=== PATIENT | female | born 1985 | race Caucasian/White ===

== ENCOUNTER 2017-09-20 11:05 | Emergency (ER) | payer OTHER ==
[~2017-09-20] VITALS: Ht 170.2 cm; Wt 106.0 kg
[~2017-09-20 11:05] MED LIST: CYCLOBENZAPR10 MG PO; FERROUS SULF325 M1 PO; FLAGYL500 MG OR; GAVISCO3 PO; IBUPROFEN600 MG PO; METROGEL VAG0.75 % VA; MOTRIN400 MG/TAB PO; OMEPRAZOLE20 MG OR; PRE-NATAL PO; RANITIDINE OR; RANITIDINE150 M1 PO; [UNRECOGNIZED DRUG - OTHER] OR
[2017-09-20 12:50] LABS: URINE BILIRUBIN - DIPSTICK NEGATIVE (NEGATIVE); URINE BLOOD DIPSTICK LARGE (NEGATIVE); URINE COLOR YELLOW; URINE GLUCOSE - DIPSTICK NEGATIVE (NEGATIVE); URINE KETONE TRACE mg/dL (NEGATIVE); URINE NITRITE - DIPSTICK NEGATIVE (Negative); URINE PH 7.5 (4.5-8.0); URINE PROTEIN - DIPSTICK NEGATIVE (NEG-TRACE); URINE UROBILINOGEN - DIPSTICK 0.2 E.U./dL (0.2)
[2017-09-20 12:52] LABS: URINE CLARITY SL CLOUDY; URINE LEUK ESTERASE SMALL (NEGATIVE); URINE RBC 25-50 RBC/hpf (0-5)
[2017-09-20 12:53] LABS: URINE BACTERIA FEW hpf; URINE EPITHELIAL CELLS FEW EPI/hpf (0-FEW)
[2017-09-20 13:31] LABS: HEMATOCRIT 38.9 % (37.0-47.0); HEMOGLOBIN 13.1 g/dl (12.0-16.0); IMMATURE GRANULOCYTES 0.2 % (0.0-1.0); MEAN CELL VOLUME 89.8 fL CALC (80.0-100.0); MEAN CORPUSCULAR HGB 30.3 pG CALC (26.0-32.0); MEAN CORPUSCULAR HGB CONC 33.7 g/L CALC (32.0-36.0); NEUT# 6.13 thou/uL (2.00-7.15); RED BLOOD COUNT 4.33 mill/uL (4.20-5.60); RED CELL DISTRI WIDTH 13.3 % (11.5-15.5)
[2017-09-20 15:15] VITALS: BP 131/79
== END 2017-09-20 15:15 | disposition home or self-care (01) | DRG 779 ==
LOC: ED 11:05
PROVIDERS: Emergency Medicine
DX: O02.1 Missed abortion (principal)

== ENCOUNTER 2017-09-22 17:15 | Day surgery (SDC) | payer OTHER ==
[~2017-09-22] VITALS: Ht 170.2 cm; Wt 104.0 kg
[2017-09-22 17:47] LABS: HEMATOCRIT 34.1 % (37.0-47.0); HEMOGLOBIN 11.2 g/dl (12.0-16.0); IMMATURE GRANULOCYTES 0.2 % (0.0-1.0); MEAN CELL VOLUME 89.7 fL CALC (80.0-100.0); MEAN CORPUSCULAR HGB 29.5 pG CALC (26.0-32.0); MEAN CORPUSCULAR HGB CONC 32.8 g/L CALC (32.0-36.0); NEUT# 7.05 thou/uL (2.00-7.15); RED BLOOD COUNT 3.8 mill/uL (4.20-5.60); RED CELL DISTRI WIDTH 13.6 % (11.5-15.5)
[2017-09-22 18:05] LABS: ALBUMIN 4.3 g/dL (3.2-5.0); ALKALINE PHOSPHATASE 71 u/l (38-126); ANION GAP 19 (6-22 (CALC)); BILIRUBIN, TOTAL 0.2 mg/dL (0.0-1.4); BUN 8 mg/dL (7-17); BUN/CREATININE RATIO 12 (12-20 (CALC)); CALCIUM 9.6 mg/dL (8.4-10.2); CARBON DIOXIDE 21 mmol/l (22-30); CHLORIDE 107 mmol/l (95-108); CREATININE 0.7 mg/dL (0.5-1.0); GFR > 60 ML/MIN (>=60 (CALC)); GFR FOR AFR.AMER. > 60 ML/MIN (>=60 (CALC)); GLUCOSE 124 mg/dL (65-105); SGOT/AST 20 u/l (14-36); SGPT/ALT 16 u/l (9-52); SODIUM 142 mmol/l (137-146); TOTAL PROTEIN 7.4 g/dL (6.3-8.2)
[2017-09-22 18:22] LABS: BETA-HCG, QUANT(RESULT NUMBER) 1188 mIU/mL
[2017-09-22] MEDS ORDERED: NORCO1 TA1 PO (20:12)
[2017-09-22 21:32] VITALS: BP 107/58
== END 2017-09-22 21:15 | disposition home or self-care (01) | DRG 770 ==
LOC: ED 17:15 → ED-I 17:51 → ED 18:10 → ORM 18:11
PROVIDERS: Emergency Medicine
PROC: 10D17ZZ Extraction of Products of Conception, Retained, Via Natural or Artificial Opening (ICD-10-PCS; principal; 2017-09-22)
DX: O03.4 Incomplete spontaneous abortion without complication (principal)

== ENCOUNTER 2017-09-25 10:52 | Emergency (ER) | payer OTHER ==
[~2017-09-25] VITALS: Ht 170.2 cm; Wt 103.0 kg
[~2017-09-25 10:52] MED LIST changes: +NORCO1 TA1 PO
[2017-09-25 17:50] VITALS: BP 122/69
== END 2017-09-25 17:40 | disposition home or self-care (01) | DRG 103 ==
LOC: ED 10:52
DX: G97.1 Other reaction to spinal and lumbar puncture (principal); R11.2 Nausea with vomiting, unspecified; Y84.4 Aspiration of fluid as the cause of abnormal reaction of the patient, or of later complication, without mention of misadventure at the time of the procedure; Y92.234 Operating room of hospital as the place of occurrence of the external cause; R19.7 Diarrhea, unspecified

== ENCOUNTER 2021-12-28 09:57 | Emergency (ER) | payer OTHER ==
[~2021-12-28] VITALS: Ht 170.2 cm; Wt 118.2 kg
[2021-12-28] MEDS ORDERED: PREDNISONE50 MG PO (10:26)
[2021-12-28] MEDS ORDERED: ZPAK PO (10:26)
[2021-12-28] MEDS ORDERED: AMOX/K CLAV875 M1 PO (10:26)
[2021-12-28 10:45] VITALS: BP 127/86
== END 2021-12-28 10:54 | disposition home or self-care (01) ==
LOC: ED 09:57
DX: J06.9 Acute upper respiratory infection, unspecified (principal); Z20.822 Contact with and (suspected) exposure to COVID-19